=== PATIENT | male | born 1970 | race Two or more races ===

== ENCOUNTER 2017-02-27 15:36 | Emergency (ER) | payer OTHER ==
[2017-02-27] MEDS ORDERED: KETOROLAC TROMETHAMINE 60 MG/2 ML SDV IM ONE (17:46)
--- NOTE | 2017-02-27 17:52 | RADIOLOGY REPORT (SQ) ---
EXAM DESCRIPTION: HIP LEFT AP/LATERAL COMPLETED DATE/TIME: 02/27/2017 5:34 pm REASON FOR STUDY: pain COMPARISON: None. NUMBER OF VIEWS: Two views. TECHNIQUE: AP pelvis and additional frog-leg view of the left hip. LIMITATIONS: None. FINDINGS: MINERALIZATION: Normal. LEFT HIP: No fracture or dislocation. No worrisome bone lesions. RIGHT HIP: No fracture or dislocation. No worrisome bone lesions. PUBIS AND ISCHIUM: No fracture. PELVIS: No fracture. SACRUM: No fracture dislocation. There is mild sclerosis on both sides of the sacroiliac joint on th e right. LOWER LUMBAR SPINE: No fracture or dislocation. No worrisome bone lesions. No significant disc disea se. SOFT TISSUES: No findings. OTHER: No other significant finding. IMPRESSION: 1. Normal left hip. 2. Right sacroiliitis. TECHNICAL DOCUMENTATION: JOB ID: [id number] [employer]- All Rights Reserved
[2017-02-27] MEDS ORDERED: KETOROLAC TROMETHAMINE INJ/PF 30 MG/1 ML SDV IM ONE (17:54)
--- NOTE | 2017-02-27 18:11 | ER Document Report ---
ED Hip Pain/Injury - General Chief Complaint: Hip Pain Stated Complaint: LEFT HIP PAIN Time Seen by Provider: 02/27/17 16:23 Information source: Patient TRAVEL OUTSIDE OF THE [place] IN LAST 30 DAYS: No - HPI Patient complains to provider of: Pain - left lateral thigh Occurred: Yesterday Where: Home Onset/Duration: Gradual Quality of pain: Achy Context: No trauma Skin Temperature: Warm Rotation of extremity: None Pain with palpation of the pelvis: No Associated Symptoms: None Other injuries: denies: Abdomen, Back, Chest, Face, Head, Neck, LUE, LLE, RUE, RLE - Related Data Allergies/Adverse Reactions: No Known Allergies Allergy (Verified 02/27/17 15:41) Past Medical History - Social History Smoking Status: Unknown if Ever Smoked Family History: CAD, CVA, Hyperlipidemia, Hypertension, Thyroid Disfunction Patient has suicidal ideation: No Patient has homicidal ideation: No - Past Medical History Cardiac Medical History: Reports: Hx Hypertension Renal/ Medical History: Denies: Hx Peritoneal Dialysis Musculoskeltal Medical History: Reports Hx Musculoskeletal Deformity, Reports Hx Musculoskeletal Trauma Traumatic Medical History: Reports: Hx Fractures - Immunizations Immunizations up to date: Yes Hx Diphtheria, Pertussis, Tetanus Vaccination: Yes Review of Systems - Review of Systems Constitutional: No symptoms reported Musculoskeletal: See HPI Skin: No symptoms reported Neurological/Psychological: No symptoms reported -: Yes All other systems reviewed and negative Physical Exam - Vital signs Vitals: Temp Pulse Resp BP Pulse Ox 98.0 F 97 16 136/96 H 97 02/27/17 15:41 02/27/17 15:41 02/27/17 15:41 02/27/17 15:41 02/27/17 15:41 - General General appearance: Appears well, Alert In distress: None - Cardiovascular Pulses: Normal: Femoral, Dorsalis pedis Normal capillary refill: Yes - Back Back: Normal, Nontender. No: Deformity/step-off, CVA tenderness, Vertebra tenderness, Scars, Scoliosis, Wounds - Extremities General upper extremity: Normal inspection, Nontender, Normal color, Normal ROM , Normal strength, Normal temperature General lower extremity: Normal inspection, Tender - along IT band left leg, Normal color, Normal ROM, Normal strength, Normal temperature, Normal weight bearing. No: Stephen's sign - Neurological Neuro grossly intact: Yes Cognition: Normal Orientation: AAOx4 [place] Coma Scale Eye Opening: Spontaneous [place] Coma Scale Verbal: Oriented [place] Coma Scale Motor: Obeys Commands [place] Coma Scale Total: 15 Motor strength normal: LUE, RUE, LLE, RLE Additional motor exam normals: Other - gait Stable, able to bear weight. - Skin Skin Temperature: Warm Skin Moisture: Dry Skin Color: Normal Skin Turgor: Elastic Course - Re-evaluation Re-evalutation: 02/27/17 22:33 Is a 38-year-old male who is hemodynamic stable, no acute distress and afebrile. No evidence of fracture or dislocation noted on x-ray no evidence of bony lesions. Limb is neurovascularly intact. Patient's presentation is consistent with iliotibial band syndrome. Discussed with patient that since he is tender to palpation at the site that is consistent with inflammation of the superficial IT band. Will discharge patient home with instruction for nonsteroidal anti-inflammatories and follow-up with his primary care. - Vital Signs Vital signs: Temp Pulse Resp BP Pulse Ox 97.4 F 91 16 125/78 97 02/27/17 18:23 02/27/17 18:23 02/27/17 18:23 02/27/17 18:23 02/27/17 18:23 - Diagnostic Test Radiology reviewed: Image reviewed, Reports reviewed Discharge - Discharge Clinical Impression: IT band syndrome Qualifiers: Laterality: left Qualified Code(s): M76.32 - Iliotibial band syndrome, left leg Condition: Good Disposition: HOME, SELF-CARE Additional Instructions: Evaluation today revealed that you are suffering from iliotibial band syndrome also known as IT band syndrome. This is typically an overuse injury resulting in inflammation of the tissue. You can take Motrin 800 mg every 8 hours You can use ice and heat as tolerated Please stretch is comfortable for you at least twice a day. Follow-up with your primary care doctor. Forms: Elevated Blood Pressure
[2017-02-27 18:26] VITALS: BP 125/78
== END 2017-02-27 18:24 | disposition home or self-care (01) ==
LOC: ER 15:36
DX: M76.32 Iliotibial band syndrome, left leg (principal); M25.552 Pain in left hip; I10 Essential (primary) hypertension
CPT/HCPCS: 99283; 73502; J1885